=== PATIENT | male | born 1995 | race Two or more races ===

== ENCOUNTER 2023-06-02 17:05 | Emergency (ER) | payer MEDICAID, OTHER ==
[~2023-06-02] VITALS: Ht 172.7 cm; Wt 66.0 kg
[2023-06-02 18:02] VITALS: BP 128/80
== END 2023-06-02 18:09 | disposition left against medical advice (07) ==
LOC: ER 17:05 → EDBD 17:05 → ER 18:00
DX: R20.0 Anesthesia of skin (principal); Z53.21 Procedure and treatment not carried out due to patient leaving prior to being seen by health care provider